=== PATIENT | female | born 1965 | race Caucasian/White ===

== ENCOUNTER 2017-09-01 10:23 | Day surgery (SDC) | payer BC, OTHER ==
[2017-08-31 11:21] VITALS: Ht 157.5 cm; Wt 72.5 kg
[~2017-09-01] VITALS: Ht 157.5 cm; Wt 72.5 kg
[2017-09-01] VITALS (9 sets, daily range): BP systolic 103–122; BP diastolic 61–72; PULSE 58–71; RESP 16–22
[~2017-09-01 10:23] MED LIST: CEFAZOLIN 1 GM INJ ONE
[2017-09-01] MEDS ORDERED: BUPIVACAINE 0.5% (SDV) 30 ML INJ ONE (12:23)
[2017-09-01] MEDS ORDERED: POVIDONE IODINE 10% 28.4 GM OINT ONE (12:23)
--- NOTE | 2017-09-01 13:04 | HPN ---
Date/Time of Note Date/Time of Note DATE: 09/01/17 TIME: 13:04 Interval H&P Admission Note Pt. seen H&P reviewed: No system changes MERRY STEWART DPM Sep 01, 2017 13:04
[2017-09-01] MEDS ORDERED: HYDROmorphONE (0.2 MG/ML) 10ML SYG IV PRN (13:30)
[2017-09-01] MEDS ORDERED: DIPHENHYDRAMINE 50 MG INJ IV PRN (13:30)
[2017-09-01] MEDS ORDERED: OXYCODONE/ACETAMINOPHEN (5/325) TAB PO PRN (13:30)
[2017-09-01] MEDS ORDERED: ONDANSETRON 4 MG INJ IV PRN (13:30)
[2017-09-01] MEDS ORDERED: FENTAnyl 50 MCG/ML VIAL IV PRN (13:30)
[2017-09-01] MEDS ORDERED: MEPERIDINE 25 MG INJ IV PRN (13:30)
[2017-09-01] MEDS ORDERED: LIDOCAINE 1% (STERILE-PAK) 30 ML INJ ONE (13:31)
[2017-09-01] MEDS ORDERED: FENTAnyl 50 MCG/ML VIAL ONE (13:35)
[2017-09-01] MEDS ORDERED: MIDAZOLAM 1 MG/ML 2 ML INJ ONE (13:35)
[2017-09-01] MEDS ORDERED: LIDOCAINE 2% (SDV) 5 ML INJ ONE (13:39)
[2017-09-01] MEDS ORDERED: PROPOFOL 20 ML ONE ×2 (13:39→13:53)
[2017-09-01] MEDS ORDERED: EPHEDrine SULFATE 50 MG/5 ML SYG ONE (14:07)
--- NOTE | 2017-09-01 14:26 | SIPON ---
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
--- NOTE | 2017-09-01 15:34 | PREOPHP ---
DATE OF ADMISSION: 09/01/2017 HISTORY OF PRESENT ILLNESS: The patient is being admitted to the hospital for elective foot surgery. Palliative treatment, unsuccessful. The patient has been explained surgery, complications, alternatives, and elected to have elective foot surgery. The patient is having problems on the lateral aspect of the hallux right foot. ALLERGIES: PATIENT DENIES ANY TO ANY MEDICINE. MEDICATIONS: Denies taking any. REVIEW OF SYSTEMS: Denies any heart, lung, liver, kidney, thyroid problems. Denies any history of diabetes. SOCIAL HISTORY: Negative for smoking and occasional alcohol. See any other pertinent history, upper extremity physical exam by Dr. Ramos. PHYSICAL EXAMINATION: EXTREMITIES: Lower extremities shows DP and PT, equal and regular. The reflexes are active. DERMATOLOGIC: Shows a lateral onychia on the hallux on the right foot. MUSCULOSKELETAL: Shows an exostosis, lateral aspect, distal phalanx, hallux right foot. IMPRESSION: Exostosis with onychia hallux lateral aspect right foot. Dictated By: Pranav Fraser DPM /[email or web address]/shirley /Document#: [id number] TONYA
--- NOTE | 2017-09-01 16:52 | OPR ---
DATE OF OPERATION: 09/01/2017 PREOPERATIVE DIAGNOSIS: Exostosis with onychia hallux, lateral aspect, right foot. POSTOPERATIVE DIAGNOSIS: Exostosis with onychia hallux, lateral aspect, right foot. SURGERY: Partial ostectomy with plastic lip repair, lateral aspect, hallux right foot. SURGEON: Pranav Fraser DPM. OPERATIVE PROCEDURE: The patient is brought to the surgical suite and placed in a supine position. The patient had IV sedation and local anesthetic of 1% xylocaine plain at the base of the hallux on the right foot. A sterile prep and drape was performed. The patient had a tourniquet on the base of the hallux right. The first incision was a longitudinal incision, and the lateral eighth of the hallux nail was excised. Then a longitudinal incision was made along that aspect going 1 cm proximal to the eponychium and 0.5 cm distal to the nail groove. Using sharp and blunt dissection, the incision was carried deep, and a semi- elliptical incision was made laterally, connecting the 2 into longitudinal incision. All granular onychia and matrix were resected. Exostosis on the lateral aspect of the distal phalanx was then excised in toto and rasped smooth. The area was cleansed. The preoperative condition having been relieved, the area was then coaptated using 5-0 nylon. The area had a postop injected injection of 0.5 percent Marcaine and a dressing of half- inch Steri-Strips, Betadine ointment, 4 x 4s impregnated with Betadine solution and Jatin with an outer layer of Coban. The patient tolerated the surgery well and was returned to recovery room in satisfactory condition. There was minimum blood loss and no complications. Dictated By: Pranav Fraser DPM /antonina/john /Document#: [id number] TONYA
[2017-09-02] MEDS ORDERED: IBUP800T25 PO (06:34)
== END 2017-09-01 15:40 | disposition home or self-care (01) ==
LOC: SDS 10:23
PROVIDERS: ATTEND Podiatrist
DX: M89.9 Disorder of bone, unspecified (principal); L03.031 Cellulitis of right toe; D64.9 Anemia, unspecified
CPT/HCPCS: 28124; 84703; 88305; 88311; J0690; J2250; J3010; L3260; Z7512; Z7610

== ENCOUNTER 2017-09-02 05:52 | Emergency (ER) | END 2017-09-02 06:53 | disposition home or self-care (01) | DX: M79.671 Pain in right foot (principal) | CPT/HCPCS: Z7502; Z7610 ==